=== PATIENT | male | born 1985 | race Caucasian/White ===

== ENCOUNTER 2016-12-08 15:16 | Emergency (ER) | payer SELFPAY ==
[~2016-12-08] VITALS: Ht 172.7 cm; Wt 75.0 kg
[~2016-12-08 15:16] MED LIST: ALBU8I INH; BENZ100 PO; IBUP800T23 PO; ULTR50TA PO; ZITH250T PO
[2016-12-08 15:17] VITALS: BP 144/83; PULSE 97; RESP 16; TEMP 98.4; O2SAT 99
== END 2016-12-08 16:00 | disposition left against medical advice (07) ==
LOC: NED 15:16
DX: Z04.9 Encounter for examination and observation for unspecified reason (principal)
CPT/HCPCS: 99281